=== PATIENT | male | born 1985 | race African-American/Black ===

== ENCOUNTER 2023-07-13 22:44 | Emergency (ER) | payer SELFPAY ==
[~2023-07-13] VITALS: Ht 170.2 cm; Wt 73.0 kg
[2023-07-13 22:48] VITALS: BP 150/104; PULSE 112; RESP 18; TEMP 98.4; O2SAT 98
== END 2023-07-13 23:35 | disposition left against medical advice (07) ==
LOC: ER 22:44
DX: F12.10 Cannabis abuse, uncomplicated (principal); F17.210 Nicotine dependence, cigarettes, uncomplicated; F14.10 Cocaine abuse, uncomplicated
CPT/HCPCS: 99283